=== PATIENT | male | born 1995 | race Caucasian/White ===

== ENCOUNTER 2021-10-04 08:24 | Emergency (ER) | payer SELFPAY ==
[~2021-10-04] VITALS: Ht 175.3 cm; Wt 90.0 kg
[2021-10-04] MEDS ORDERED: CEPHALEXIN MONOHYDRATE 500 MG CAPSULE PO ONE (09:15)
[2021-10-04] MEDS ORDERED: LIDOCAINE 1% 10 ML VIAL ID ONE (09:15)
[2021-10-04] MEDS ORDERED: BACITRACIN 0.9 GM PACKET OINTMENT TP ONE (09:15)
[2021-10-04] MEDS ORDERED: SODIUM CHLORIDE 0.9% 250 ML IRRIG SOLUTION BOTTLE IRRIG ONE (09:15)
[2021-10-04] MEDS ORDERED: PERTUSS(ACELL),DIPH,TET VAC/PF 0.5 ML SYRINGE IM. ONE (09:15)
[2021-10-04 10:35] VITALS: BP 135/76
[2021-10-04] MEDS ORDERED: CEPH-558 PO (11:03)
== END 2021-10-04 11:12 | disposition home or self-care (01) ==
LOC: EMS 08:24
DX: S61.411A Laceration without foreign body of right hand, initial encounter (principal); W45.8XXA Other foreign body or object entering through skin, initial encounter; Y93.89 Activity, other specified; Y92.89 Other specified places as the place of occurrence of the external cause; Y99.8 Other external cause status
CPT/HCPCS: 99283; 90715; 90471; 12002; J3490